=== PATIENT | male | born 1950 | race Caucasian/White ===

== ENCOUNTER → 2018-05-18 | Outpatient (CLI) | payer OTHER ==
[~2018-05-18] MED LIST: ANTIBIOTIC; HYDROCODONE PO; [UNRECOGNIZED DRUG - OTHER]; [UNRECOGNIZED DRUG - OTHER]; [UNRECOGNIZED DRUG - REMARK]; [UNRECOGNIZED DRUG - REMARK]
--- NOTE | 2018-05-18 16:01 | Diagnostic Imaging Report ---
RADIOGRAPH(S) OF THE ABDOMEN AND PELVIS, 2 view(s) HISTORY: Calculus of kidney COMPARISON: CT of the abdomen and pelvis June 16, 2017 FINDINGS: No specific evidence of obstruction or ileus. Calcifications Right: A punctate calcification projects at the interpolar region of the right renal shadow, likely one of the punctate renal calculi. Left: A 5 mm calcification projects near the inferior pole the left kidney, compatible with the previously seen calculus. The remaining calcifications may be due to small to visualize on radiographs or obscured by stool and bowel gas. Stable appearing pelvic calcifications. The bones are partially obscured by stool and overlying bowel gas. IMPRESSION: 1. Nonobstructive bowel gas pattern. 2. Partially visualized bilateral renal calculi. Signed by: Dr. Rodger Oleary D.O., M.M.M. on 05/18/2018 3:57 PM
== END ==
LOC: RAD 15:10
PROVIDERS: ATTEND Urology
DX: N20.0 Calculus of kidney (principal)
CPT/HCPCS: 74018

== ENCOUNTER 2019-08-08 12:03 | Emergency (ER) | payer OTHER ==
[~2019-08-08] VITALS: Ht 190.5 cm; Wt 99.8 kg
--- OUTSIDE RECORDS SUMMARY | 2019-08-08 12:06 | XMS REPORT ---
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 Allergies, Adverse Reactions, Alerts This patient has no known allergies or adverse reactions. Medications This patient has no known medications. Results Test Description Test Time Test Comments Text Results Atomic Results Result Comments ABDOMEN-1VIEW (KUB) 2019-06-15 12:18:00 [place] [address] Patient Name: GELA CRUZ MR #: [id number] : 1950 Age/Sex: 68/M Req #: [id number] Adm Physician: Ordered by: WE[facility] MD Report #: [id number] Location: [facility] Room/Bed: Procedure: [id number] DX/ABDOMEN-1VIEW (KUB) Exam Date: 06/15/19 Exam Time: 1135 REPORT STATUS: Signed Exam: KUB - 2 views Indication: Renal calculi Comparison: Multiple prior KUBs, most recently of 12/08/2018, CT abdomen pelvis of 06/16/2017 Findings: Right midpole 5 mm renal calculus. Left mid pole 4 mm renal calculus. Left lower pole 5 mm renal calculus. No other radiographically apparent renal calculi. Nonobstructive bowel gas pattern. No free air. Moderate right hip degenerative changes and mild left hip degenerative changes. Impression: Bilateral renal calculi measuring up to 5 mm as above. Signed by: Don Sethi MD on 06/15/2019 12:21 PM Dictated By: DON SETHI MD 20 Transcribed By: ROSE on 06/15/191 COPY TO: [facility] MD ABDOMEN-1VIEW (KUB) 2018-12-08 14:25:00 [place] [address] Patient Name: GELA CRUZ MR #: [id number] : 1950 Age/Sex: 68/M Req #: [id number] Adm Physician: Ordered by: WE[facility] CON[facility] MD Report #: [id number] Location: [facility] Room/Bed: Procedure: [id number] DX/ABDOMEN-1VIEW (KUB) Exam Date: 12/08/18 Exam Time: 1400 REPORT STATUS: Signed Exam: Abdominal film Clinical History: Renal s tones Comparison: 05/18/2018, CT abdomen and pelvis 06/16/2017 DISCUSSION: 4-5 mm left lower pole calculus is again noted. 3 mm right upper pole calculus is also unchanged. Remaining small nonobstructing bilateral renal calculi described on comparison CT 06/16/2017 are not identified by plain radiography. No suspicious calcifications project over the expected ureteral courses. Bowel gas pattern is nonobstructive. Regional skeletal structures are intact. IMPRESSION: Bilateral renal calculi partially visualized as above. Signed by: Dr. Franko Delacruz M.D. on 12/08/2018 2:28 PM Dictated By: FRANKO DELACRUZ MD 1428 Transcribed By: ROSE on 12/08/181427 COPY TO: [facility] MD ABDOMEN-1VIEW (KUB) 2018-05-18 15:52:00 [place] [address] Patient Name: GELA CRUZ MR #: [id number] : 1950 Age/Sex: 67/M Req #: [id number] Adm Physician: Ordered by: WE[facility] CONTEH MD Report #: [id number] Location: [facility] Room/Bed: Procedure: [id number] DX/ABDOMEN-1VIEW (KUB) Exam Date: 05/18/18 Exam Time: 1529 REPORT STATUS: Signed RADIOGRAPH(S) OF THE ABDOMEN AND PELVIS, 2 view(s) HISTORY: Calculus of kidney COMPARISON: CT of the abdomen and pelvis June 16, 2017 FINDINGS: No specific evidence of obstruction or ileus. Calcifications Right: A punctate calcification projects at the interpolar region of the right renal shadow, likely one of the punctate renal calculi. Left: A 5 mm calcification projects near the inferior pole the left kidney, compatible with the previously seen calculus. The remaining calcifications may be due to small to visualize on radiographs or obscured by stool and bowel gas. Stable appearing pelvic calcifications. The bones are partially obscured by stool and overlying bowel gas. IMPRESSION: 1. Nonobstructive bowel gas pattern. 2. Partially visualized bilateral renal calculi. Signed by: Dr. Miquel Oleary D.O., M.M.M. on 05/18/2018 3:57 PM Dictated By: MIQUEL OLEARY DO 1937 Transcribed By: ROSE on 05/18/18 1552 COPY TO: [facility] MD CT ABDOMEN/PELVIS WO [place] [address] Patient Name: GELA CRUZ MR #: [id number] : 1950 Age/Sex: 66/M Req #: [id number] Adm Physician: Ordered by: WE[facility] MD Report #: [id number] Location: CT Room/Bed: Procedure: [id number] CT/CT ABDOMEN/PELVIS WO Exam Date: Exam Time: REPORT STATUS: Signed PROCEDURE: CT ABDOMEN AND PELVIS WITHOUT CONTRAST TECHNIQUE: The abdomen and pelvis were scanned utilizing a multidetector helical scanner from the diaphragm to the lesser trochanter without contrast per stone protocol. Coronal and sagittal multiplanar reformations were obtained. COMPARISON: CT abdomen and pelvis 06/05/2013. INDICATIONS: LEFT FLANK PAIN FINDINGS: ABSENCE OF INTRAVENOUS CONTRAST DECREASES SENSITIVITY FOR DETECTION OF FOCAL LESIONS AND VASCULAR PATHOLOGY. LOWER THORAX: Unchanged mild bibasilar atelectasis and scarring. HEPATOBILIARY: Stable 1.1 cm benign-appearing hypodensity in segment 4A (series 3 image 29). No biliary ductal dilatation. Gallstones. SPLEEN: No splenomegaly. PANCREAS: No focal masses or ductal dilatation. ADRENALS: No adrenal nodules. KIDNEY S/URETERS: No hydronephrosis or solid mass lesions. 4 right renal stones: 0.4 cm stone in the upper pole of the right kidney (series 3 image 53), 0.3 cm stone in the interpolar region of the right kidney) image 64), 0.3 cm stone in the interpolar/lower pole (image 71), 0.38 cm stone in the lower pole (image 70). 3 left renal stones: 0.27 cm stone in the upper pole (image 52), 0.3 cm stone in the interpolar region (image 61), and 0.38 cm stone in the lower pole (image 75). PELVIC ORGANS/BLADDER: Unremarkable. PERITONEUM / RETROPERITONEUM: No free air or fluid. LYMPH NODES: No lymphadenopathy. VESSELS: Unremarkable. GI TRACT: No distention or wall thickening. Colonic diverticula without evidence of diverticulitis. Appendix is normal. BONES AND SOFT TISSUES: Unremarkable. Fat containing right inguinal hernia. Multilevel degenerative changes in the lumbar spine. Posterior disc osteophyte at L4-L5. Severe disc space narrowing at L5-S1 with herniated disc. IMPRESSION: 1. 4 small right and 3 small left renal stones. No obstruction. No hydronephrosis. 2. Cholelithiasis without evidence of acute cholecystitis. 3. Stable 1.1 cm benign hepatic hypodensity, likely a cyst or a hemangioma. Dictated by: Elba Patel M.D. on 06/16/2017 at 18:19 Electronically approved by: Elba Patel M.D. on 06/16/2017 at 18:19 Dictated By: ELBA PATEL MD 18 Transcribed By: BILL on 06/16/171818 COPY TO: [facility] MD
[2019-08-08 12:28] LABS: BASOPHILS % 0.4 % (0.0-1.0); EOSINOPHILS # (AUTO) 0.1 (0.0-0.4); EOSINOPHILS % 0.8 % (0.0-6.0); HEMATOCRIT 43.3 % (38.2-49.6); HEMOGLOBIN 15.3 g/dL (14.0-18.0); LYMPHOCYTES % 14.3 % (18.0-39.1); MEAN CORPUSCULAR HEMOGLOBIN 32.1 pg (28-32); MEAN CORPUSCULAR HGB CONC 35.3 g/dL (31-35); NEUTROPHILS # (AUTO) 5.1 (2.1-6.9); NEUTROPHILS % 70.2 % (38.7-80.0); PLATELET COUNT 147 x10e3/uL (140-360); RED BLOOD COUNT 4.76 x10e6/uL (4.3-5.7); RED CELL DISTRIBUTION WIDTH 13.1 % (11.7-14.4)
[2019-08-08 12:40] LABS: CLARITY,URINE HAZY (CLEAR); COLOR,URINE YELLOW (YELLOW)
[2019-08-08 12:41] LABS: BILIRUBIN,URINE NEGATIVE (NEGATIVE); KETONES,URINE 3+ (NEGATIVE); LEUKOCYTE ESTERASE ,URINE NEGATIVE (NEGATIVE); NITRITE,URINE NEGATIVE (NEGATIVE); PROTEIN,URINE DIPSTICK TRACE (NEGATIVE); URINE UROBILINOGEN 0.2 mg/dL (0.2 - 1)
[2019-08-08 12:45] LABS: BACTERIA,URINE MODERATE /HPF; EPITHELIAL CELLS,URINE MODERATE /LPF
[2019-08-08 13:02] LABS: ALBUMIN 3.5 g/dL (3.5-5.0); ALBUMIN/GLOBULIN RATIO 1.2 (0.8-2.0); ANION GAP 15.3 mmol/L (8-16); CALCIUM 9.8 mg/dL (8.4-10.2); CREATININE, SERUM 1.31 mg/dL (0.72-1.25); POTASSIUM 4.3 mmol/L (3.5-5.1)
[2019-08-08] MEDS ORDERED: ONDANSETRON HCL INJ 2MG/ML 2ML 2 MG/ML VIAL IV STA (13:12)
[2019-08-08] MEDS ORDERED: KETOROLAC TROMETHAMINE 30 MG/ML VIAL IV STA (13:12)
[2019-08-08] MEDS ORDERED: SODIUM CHLORIDE 0.9% 1000ML 1,000 ML IV ONE (13:15)
[2019-08-08] MEDS ORDERED: MORPHINE SULFATE INJ 4 MG/ML INJ 1ML IV ONE (13:30)
--- NOTE | 2019-08-08 15:30 | Diagnostic Imaging Report ---
Abdomen, one view Clinical indications: Renal calculi Comparison: 06/15/2019 Findings: Unchanged 5 mm right midpole and 4 mm left midpole renal calculi are identified. The previously seen 5 mm calculus overlying the left lower does not appear over the renal shadow on this examination. There is a 5 mm calcification in the left pelvis which may be a calculus in the distal ureter. Impression: 1. 5 mm calcification overlying the location of the left distal ureter. This may be the 5 mm left lower pole calculus that was seen on the previous examination. 2. Unchanged 5 mm right midpole and 4 mm left midpole calculi. Signed by: Rupesh Fuchs MD on 08/08/2019 3:27 PM
[2019-08-08 16:22] VITALS: BP 141/94
== END 2019-08-08 16:04 | disposition home or self-care (01) ==
LOC: ER 12:03
DX: M54.5 Low back pain (principal); N20.1 Calculus of ureter; E11.9 Type 2 diabetes mellitus without complications
CPT/HCPCS: 36415; 74018; 80053; 81001; 85025; 99284; J1885; J2270; J2405; J7030

== ENCOUNTER → 2019-08-15 | Outpatient (CLI) | payer OTHER ==
--- NOTE | 2019-08-15 14:59 | Diagnostic Imaging Report ---
Exam: KUB - 2 views Indication: Renal calculus Comparison: Multiple prior KUBs, most recently 08/08/2019 Findings: The calculus previously overlying the expected course of the left distal ureter is no longer visualized. 4 mm calcific density overlying the lateral upper right renal silhouette may represent a renal calculus. Mild degenerative changes of the visualized spine and both hip joints. Nonobstructive bowel gas pattern. No free air. Impression: 4 mm calcific density overlying the right kidney may represent a renal calculus. Previously seen calcific densities overlying the left kidney and expected course of left distal ureter are not visualized on this study. Signed by: Jose R Morrow MD on 08/15/2019 2:56 PM
== END ==
LOC: RAD 14:00
PROVIDERS: ATTEND Urology
DX: N20.0 Calculus of kidney (principal)
CPT/HCPCS: 74018

== ENCOUNTER → 2020-04-23 | Outpatient (CLI) | payer MEDICARE ==
--- NOTE | 2020-04-23 14:14 | Diagnostic Imaging Report ---
KUB-one view INDICATION: ^[id number] ^[id number] ^CALCULUS OF KIDNEY Comparison: 08/15/2019. Discussion: There is a stable 4 mm calcific density projecting over the upper lateral right renal silhouette. There is also a stable 3 mm calcific density projecting over the upper pole of the left kidney. No dilated loops of bowel are identified. Moderate stool burden is noted throughout the visualized colon. Negative for acute osseous abnormality. IMPRESSION: Stable bilateral subcentimeter renal calculi. Signed by: Paulo Cerna MD on 04/23/2020 2:10 PM
== END ==
LOC: RAD 13:12
PROVIDERS: ATTEND Urology
DX: N20.0 Calculus of kidney (principal)
CPT/HCPCS: 74018

== ENCOUNTER → 2020-08-06 | Outpatient (CLI) | payer MEDICARE | LOC: RAD 12:45 | PROVIDERS: ATTEND Internal Medicine Rheumatology | DX: M25.511 Pain in right shoulder (principal) ==

== ENCOUNTER 2020-10-23 12:15 | Emergency (ER) | payer MEDICARE ==
[~2020-10-23] VITALS: Ht 190.5 cm; Wt 99.8 kg
[2020-10-23] MEDS ORDERED: FLUORESCEIN SOD(OPTH) 1 MG STRP ONE (12:57)
[2020-10-23] MEDS ORDERED: ONDANSETRON HCL 4 MG ORAL DISINTEGRATING TAB PO ONE (13:00)
[2020-10-23] MEDS ORDERED: FENTANYL CITRATE/PF 100MCG/2 ML INJ IJ ONE (13:00)
[2020-10-23] MEDS ORDERED: TYLENOL # 31 EA PO (13:38)
[2020-10-23] MEDS ORDERED: ZOFRAN4 MG PO (13:38)
[2020-10-23 14:29] VITALS: BP 142/101
== END 2020-10-23 14:13 | disposition home or self-care (01) ==
LOC: ER 12:54
DX: B02.9 Zoster without complications (principal); E11.9 Type 2 diabetes mellitus without complications; E78.5 Hyperlipidemia, unspecified; M06.9 Rheumatoid arthritis, unspecified; Z87.442 Personal history of urinary calculi
CPT/HCPCS: 99283; J3010; Q0162

== ENCOUNTER → 2021-03-14 | Outpatient (CLI) | payer MEDICARE ==
[~2021-03-14] MED LIST changes: +TYLENOL # 31 EA PO; +ZOFRAN4 MG PO
== END ==
LOC: RAD 09:17
PROVIDERS: ATTEND Urology
DX: N20.0 Calculus of kidney (principal)
CPT/HCPCS: 74018